=== PATIENT | female | born 1955 | race Caucasian/White ===

== ENCOUNTER → 2019-12-14 10:21 | Outpatient (CLI) | payer MEDICARE, SELFPAY ==
--- NOTE | ~2019-12-14 | US_ITS ---
EXAMINATION: US renal BI EXAM DATE: 12/14/2019 11:29 INDICATION: Right renal cyst. TECHNIQUE: Multiple grayscale and Doppler images of the kidneys were obtained (by a technologist who performed the scan) and subsequently reviewed. Correlation is made to CT abdomen 09/10/2018. FINDINGS: Right kidney: There is normal contour and echogenicity. It measures 9.8 x 5.3 x 5.2 centimeters. The re is midpole anechoic region measuring up to 5.4 cm consistent with cyst. There is no hydronephros is. Left kidney: There is normal contour and echogenicity. It measures 10.2 x 4.1 x 4.1 centimeters. Th ere are no focal renal lesions identified. There is no hydronephrosis. Bladder unremarkable. Bilateral ureteral jets were confirmed. IMPRESSION: 1. Right renal cyst. Reviewed, dictated and finalized at location A. FIREMAN IMPRESSION: 1. Right renal cyst.
== END ==
PROVIDERS: PCP Emergency Medicine; Visit Provider Urology
DX: N28.1 Cyst of kidney, acquired (principal)
CPT/HCPCS: 76775